=== PATIENT | female | born 1960 | race Caucasian/White ===

== ENCOUNTER → 2023-09-05 | Outpatient (CLI) | payer BC | END | disposition home or self-care (01) | LOC: LABPAT 10:05 | PROVIDERS: ATTEND Orthopaedic Surgery | DX: Z01.812 Encounter for preprocedural laboratory examination (principal); M17.12 Unilateral primary osteoarthritis, left knee; Z22.322 Carrier or suspected carrier of Methicillin resistant Staphylococcus aureus | CPT/HCPCS: 87070 ==

== ENCOUNTER 2023-10-09 12:00 | Observation (INO) | payer BC ==
--- NOTE | 2023-10-08 12:25 | HP ---
HISTORY AND PHYSICAL DATE OF SURGERY: 10/09/2023 HISTORY OF PRESENT ILLNESS: Brandee Jackson is a 63-year-old patient seen with symptomatic left knee osteoarthritis. We discussed options regarding treatment. She elected to proceed with left total knee arthroplasty. Consent was obtained. Medical clearance was provided by Dr. Marilee Otoole. PAST MEDICAL HISTORY: Nch-[id number] diabetes. PAST SURGICAL HISTORY: Noncontributory. DAILY MEDICATIONS: Unknown. SOCIAL HISTORY: She denies tobacco use. PHYSICAL EVALUATION OF THE RIGHT KNEE: Range of motion is -2 to 110 degrees. Mild effusion. Lateral joint line tenderness. Lateral patellofemoral crepitus with range of motion. Pain with patellofemoral compression. Ligaments stable. There is a valgus deformity. Hip rotation without pain. Distal neurovascular exam is intact. IMAGING STUDIES: Radiographs of the left knee revealed severe lateral compartment osteoarthritis with diffuse osteophytes. IMPRESSION: 1. Left knee osteoarthritis. 2. Mxh-sgwremx-ukbupcyns diabetes. PLAN: Left total knee arthroplasty. MMODL / IJN: [id number] /
[~2023-10-09 12:00] MED LIST: TRANEXAMIC 1,000 MG/100ML-NACL 1,000 MG in SALINE 1 100ML.BAG IVPB PRN
[2023-10-09] MEDS: LACTATED RINGERS 1,000 ML IV SCH ×2 (12:46→21:46)
[2023-10-09 12:58] LABS: Glucose,Whole Blood 94 mg/dL (70-110)
[2023-10-09] MEDS: ACETAMINOPHEN TAB 500 MG TAB PO PRN (13:01)
[2023-10-09] MEDS: DEXAMETHASONE SOD PHOSPHATE 4 MG/ML 1 ML VIAL IV ONE (13:02)
[2023-10-09] MEDS: ONDANSETRON 4 MG/2 ML VIAL IVP ONE (13:02)
[2023-10-09] MEDS: MELOXICAM 7.5 MG TAB PO PRN (13:02)
[2023-10-09] MEDS: MIDAZOLAM 2 MG/2 ML VIAL IVP ONE (13:18)
[2023-10-09] MEDS ORDERED: MIDAZOLAM 2 MG/2 ML VIAL ONE (15:03)
[2023-10-09] MEDS ORDERED: TRANEXAMIC 1,000 MG/100ML-NACL PREMIX BAG ONE (15:03)
[2023-10-09] MEDS ORDERED: DEXAMETHASONE SOD PHOSPHATE 4 MG/ML 1 ML VIAL ONE (15:03)
[2023-10-09] MEDS ORDERED: PROPOFOL 10 MG/ML 20 ML VIAL IV ONE (15:03)
[2023-10-09] MEDS ORDERED: fentaNYL (PF) 50 MCG/ML 2 ML AMP ONE (15:03)
[2023-10-09] MEDS ORDERED: ROPIVACAINE 5 MG/ML 30 ML VIAL ONE (15:03)
[2023-10-09] MEDS: ceFAZolin 1,000 MG in SODIUM CHLORIDE 0.9% 1,000 ML IRRIGATION ONE (15:25)
[2023-10-09] MEDS ORDERED: NALOXONE 0.4 MG/ML 1 ML VIAL IV PRN (16:43)
[2023-10-09] MEDS ORDERED: HYDROmorphone 0.5 MG/0.5 ML SYRINGE IVP PRN (16:43)
[2023-10-09] MEDS ORDERED: HYDROcodone/APAP 5-325MG 1 EACH TAB PO PRN (16:43)
--- NOTE | 2023-10-09 16:43 | P.OP ---
Date of Procedure: 10/09/23 Preoperative Diagnosis: Left knee osteoarthritis Postoperative Diagnosis: Left knee osteoarthritis Procedure(s) Performed: Left total knee arthroplasty Implants: 1. DePuy attune size 4 left cruciate retaining cemented femur 2. DePuy attune size 4 fixed-bearing cemented tibial baseplate 3. DePuy attune size 4 fixed-bearing cruciate retaining 6 mm polyethylene tibial insert 4. DePuy attune 35 mm all polyethylene cemented patella Anesthesia: regional (Adductor canal catheter, iPAQ block), spinal Surgeon: Leno Jacques Lipcoat Sprayer #1: Barrington Adkins Estimated Blood Loss (ml): 45 Pathology: none sent Condition: stable Disposition: PACU Indications for Procedure: 63-year-old patient who was seen with symptomatic left knee osteoarthritis. After treatment options were discussed, she elected to proceed with total knee arthroplasty. Operative Findings: See description of procedure Description of Procedure: Patient was taken to the operative suite after having an adductor canal catheter placed by the department of anesthesia. Patient underwent a spinal anesthetic by the department of anesthesia. Patient was given preoperative IV intake antibiotics and TXA. A well-padded tourniquet was placed about the left lower extremity. The lower extremity was then prepped and draped in the normal sterile orthopedic fashion. The extremity was elevated, a tourniquet was i nsufflated to 300. A standard anterior incision was made sharply through skin. Dissection was taken down through the subcutaneous soft tissues down to the extensor mechanism. A medial arthrotomy was performed, patella was everted and knee was flexed. There was advanced osteoarthritis noted. I introduced my distal intramedullary femoral drill. I then introduced the distal femoral cutting jig. Barrington FUENTES secured the cutting jig with 2 pins. I held retractors in position while Barrington FUENTES performed the distal femoral resection through the guide area we now removed her distal femoral cutting guide. We now placed our 4-in-1 femoral cutting block and positioned and it was secured with 2 pins by Barrington FUENTES while I held the block in position. The distal femoral finishing was now completed. A proximal tibial cutting guide was positioned. I held the guide in the appropriate position with both hands while Barrington FUENTES inserted stabilizing pins into the guide. Proximal tibial cut was made. We now placed a trial femoral component into position, along with an appropriate size tibial tray and insert. We now took the knee through range of motion and had full extension good flexion and good overall soft tissue balance noted. The patella was everted and stabilized with 2 towel clips held by Barrington FUENTES while I performed a flush with patellar quad tendon utilizing a fresh sawblade. We templated the patella, appropriate drill holes were made. An appropriate trial patella was positioned, knee was taken through full range of motion with the patella tracking very nicely. The trial patella was removed. Drill holes were made through the femoral component. All trial components were removed after marking off the appropriate rotation of the tibia. Retractors we re now positioned along the proximal tibia. An appropriate keel punch was made with the appropriate size tibial guide by myself on Barrington FUENTES assisted by holding retractors. At this point appropriate size implants were chosen and opened. The joint was irrigated copiously with pulse lavage mechanical irrigation. The wound was irrigated with pulse lavage mechanical irrigation. We mixed antibiotic methylmethacrylate. We placed the knee into flexion. We placed multiple retractors assisted by Barrington FUENTES to expose the proximal tibia. Once the methyl methacrylate was ready, the tibial component was cemented into place removing any excess methylmethacrylate form by both myself and Barrington FUENTES. The femoral component was cemented into place removing the removing any excess methylmethacrylate performed by both myself and Barrington FUENTES. We then inserted the appropriate size polyethylene tibial insert. We made sure that it was locked into position. We took the knee into full extension, and then back in a flexion making sure we had removed any excess methylmethacrylate. The patellar component was then cemented down and secured with clamp. Excess methylmethacrylate removed. We kept the knee in full extension, patellar clamp in position until methylmethacrylate had hardened. Once it had hardened the patellar clamp was removed. The knee was taken through full range of motion. The patella tracked nicely. There was good soft tissue balancing. The tourniquet was now released. Additional hemostasis was achieved via electrocautery. A second gram of TXA was given. The wound again was irrigated with pulse lavage mechanical irrigation. The extensor mechanism was repaired with Ethibond suture. We checked the repair with range of motion and it was stable. The subcutaneous soft tissues were repaired with Vicryl in layers. The skin was approximated with pernio/Dermabond. Sterile dressings were applied followed by loose web roll and Coy bandage. The patient was transferred to a bed, and taken to recovery in stable and satisfactory condition. Barrington FUENTES assisted with this complex procedure.
[2023-10-09 17:17] LABS: Glucose,Whole Blood 119 mg/dL (70-110)
[2023-10-09] MEDS: fentaNYL (PF) 50 MCG/ML 2 ML AMP IV PRN (17:29)
--- NOTE | 2023-10-09 17:52 | XR ---
PROCEDURE: XR knee limited LT - 2V DATE AND TIME: 10/09/2023 5:44 PM CLINICAL INDICATION: PHH; Evaluation for Postop abnormality and alignment TECHNIQUE: Department protocol COMPARISON: None FINDINGS: Portable AP and crosstable lateral postoperative views were obtained. TKR appears in anatom ic positioning and alignment. No unexpected postoperative changes. IMPRESSION: Post TKR radiographic examination - left knee.
[2023-10-09] MEDS: IV FLUID CONTINUATION 1,000 ML IV ONE (18:00)
[2023-10-09] MEDS: HYDROmorphone 0.5 MG/0.5 ML SYRINGE IVP PRN (19:07)
[2023-10-09 21:55] LABS: Glucose,Whole Blood 134 mg/dL (70-110)
[2023-10-09] MEDS: SENNOSIDES-DOCUSATE SODIUM 1 EACH TAB PO SCH (21:57)
[2023-10-09] MEDS: HYDROcodone/APAP 5-325MG 1 EACH TAB PO PRN (21:58)
[2023-10-09] MEDS ORDERED: DEXTROSE 50% SYRINGE 50 ML IVP PRN ×2 (23:14)
[2023-10-09] MEDS: INSULIN ASPART (NovoLOG) 100 UNIT/ML VIAL SQ SCH (23:26)
[2023-10-09] MEDS: ATORVASTATIN 10 MG TAB PO SCH (23:52)
[2023-10-10] MEDS: HYDROmorphone 1 MG/ML 1 ML SYRINGE IVP PRN (03:09)
--- NOTE | 2023-10-10 05:13 | P.CONS ---
History of Present Illness - Reason for Consult Consult date: 10/09/23 Postoperative medical management - Chief Complaint Left knee osteoarthritis - History of Present Illness 63-year-old female with diabetes mellitus hypertension Patient coming in for left total knee arthroplasty secondary to severe advanced left knee osteoarthritis debilitating pain and limitations in activities of daily living patient tolerated procedure well no observed immediate postoperativ e complications denies any chest pain or trouble breathing denies any nausea vomiting or abdominal pain patient tolerated p.o. intake she ambulated with assistance she has passed urine Patient denies any tobacco smoking or heavy alcohol consumption review of systems Pertinent positives as noted in HPI. All other systems were reviewed and are negative on exam Constitutional: No acute distress, conversant, pleasant Eyes: Anicteric sclerae, moist conjunctiva, Pupils equal round reactive to light ENMT: NC/AT Oropharynx clear, no erythema, or exudates Neck: Supple, no masses, or JVD No carotid bruits No thyromegaly Lungs: Clear to auscultation Clear to percussion Normal respiratory effort, no accessory muscle use Cardiovascular: Heart regular in rate and rhythm, No murmurs, gallops, or rubs No peripheral edema Abdominal: Soft Nontender, no guarding, rebound or rigidity Abdomen moving with respiration Normoactive bowel sounds No hepatomegaly, No splenomegaly Extremities: No digital cyanosis No clubbing Pedal pulses intact and symmetrical Radial pulses intact and symmetrical No calf tenderness Psychiatric: Alert and oriented to person, place and time Appropriate affect fair judgement Neuro Muscles Strength 5/5 in all 4 extremities with some Tatian left lower extremity due to postop Sensation to light touch grossly present throughout Cranial nerves II-XII grossly intact Past Medical History Past Medical History: Diabetes Mellitus, Hyperlipidemia, Hypertension, Osteoarthritis (OA) Additional Past Medical History / Comment(s): hx. diverticulitis History of Any Multi-Drug Resistant Organisms: None Reported Past Surgical History: Bowel Resection, Breast Surgery, Cholecystectomy, Hernia Repair Additional Past Surgical History / Comment(s): benign breast bx. Past Anesthesia/Blood Transfusion Reactions: No Reported Reaction Past Psychological History: No Psychological Hx Reported Smoking Status: Former smoker Past Alcohol Use History: Occasional Additional Past Alcohol Use History / Comment(s): quit smoking 1990, started @age of 11, 1-2ppd Past Drug Use History: None Reported - Past Family History Mother Family Medical History: No Reported History Medications and Allergies Home Medications Medication Instructions Recorded Confirmed Type Ascorbic Acid [Vitamin C] 500 mg PO DAILY 10/04/23 10/04/23 History Aspirin 81 mg PO DAILY 10/04/23 10/04/23 History Atorvastatin [Lipitor] 10 mg PO HS 10/04/23 10/04/23 History Cholecalciferol [Vitamin D3 (25 25 mcg PO DAILY 10/04/23 10/04/23 History Mcg = 1000 Iu)] Garlic 100 mg PO DAILY 10/04/23 10/04/23 History Magnesium 200 mg PO DAILY 10/04/23 10/04/23 History [place]-3/Dha/Epa/Fish Oil [Fish Oil 1 each PO DAILY 10/04/23 10/04/23 History 1,000 mg Softgel] Pioglitazone [Actos] 30 mg PO DAILY 10/04/23 10/04/23 History Semaglutide [Ozempic] 1 mg SQ VAN 10/04/23 10/04/23 History lisinopriL [Zestril] 5 mg PO DAILY 10/04/23 10/04/23 History Allergies Allergy/AdvReac Type Severity Reaction Status Date / Time morphine Allergy Hallucinati Verified 10/04/23 10:18 ons metformin AdvReac Diarrhea Verified 10/04/23 10:17 Physical Exam Vitals: Vital Signs Temp Pulse Pulse Resp BP Pulse Ox 10/10/23 02:00 97.5 F L 62 103/56 99 10/09/23 19:30 60 18 141/63 98 10/09/23 19:00 67 16 130/64 100 10/09/23 18:30 58 L 18 124/66 97 10/09/23 18:00 63 17 118/53 99 10/09/23 17:45 66 18 102/45 99 10/09/23 17:30 63 16 111/54 97 10/09/23 17:15 73 17 107/49 95 10/09/23 17:10 97.2 F L 70 18 102/46 93 L 10/09/23 13:40 65 18 124/61 100 10/09/23 12:37 97.9 F 63 18 140/64 99 Intake and Output 10/09/23 10/09/23 10/10/23 14:59 22:59 06:59 Intake Total 200 1051 Output Total 45 Balance 200 1006 Intake: IV 200 1051 Output: Estimated Blood Loss 45 Other: Voiding Method Bedside Commode Weight 93.9 kg 93.9 kg Results Labs: Abnormal Lab Results - Last 24 Hours (Table) 10/09/23 10/09/23 Range/Units 17:15 21:54 POC Glucose (mg/dL) 119 H 134 H (70-110) mg/dL Assessment and Plan Assessment: Hypertension controlled resume lisinopril Diabetes mellitus Hold oral hypoglycemic agents Initiate patient on insulin sliding scale Left total knee arthroplasty postoperative day 0 Pain control DVT prophylaxis per primary orthopedic team Stable from medical standpoint Check CBC BMP in the morning Thank you for this consultation
[2023-10-10 05:31] LABS: Glucose,Whole Blood 150 mg/dL (70-110)
--- NOTE | 2023-10-10 08:52 | P.PN ---
Progress Note - Text Progress Note Date: 10/10/23 Postoperative day # 1 status post total knee arthroplasty, and adductor canal catheter placed for postoperative analgesia, currently at ropivacaine 0.2% 8 mL per hour and continuous infusion, visual analogue scale is 4/10, patient using oral pain medication for breakthrough pain. Assessment and plan= Acute postoperative pain, adductor canal catheter for pain control, pain is well controlled we'll continue the same management.
[2023-10-10] MEDS: MELOXICAM 7.5 MG TAB PO SCH (09:31)
[2023-10-10] MEDS: lisinopriL 5 MG TAB PO SCH (09:31)
[2023-10-10] MEDS: ENOXAPARIN 30 MG/0.3 ML SYRINGE SQ SCH (09:33)
[2023-10-10 10:02] LABS: African American GFR (CKD) >90 (>60 ml/min/1.73 sqM); Anion Gap 8 mmol/L; Blood Urea Nitrogen 15 mg/dL (7-17); Calcium 9.4 mg/dL (8.4-10.2); Carbon Dioxide 26 mmol/L (22-30); Chloride 102 mmol/L (98-107); Glucose 133 mg/dL (74-99); Non-African American GFR(CKD) >90 (>60 ml/min/1.73 sqM); Potassium 4.6 mmol/L (3.5-5.1); Sodium 136 mmol/L (137-145)
[2023-10-10 11:16] LABS: Glucose,Whole Blood 135 mg/dL (70-110)
--- NOTE | 2023-10-10 12:31 | P.PN ---
Subjective Progress Note Date: 10/10/23 Subjective: Patient seen and examined at bedside. No acute events overnight. Pertinent positives and negatives as discussed above, a complete review of systems was performed and all other systems are negative. Vitals Signs Reviewed. General: Nontoxic, no distress, appears at stated age Derm: Warm, dry, dressing clean, dry, intact Head: Atraumatic, normocephalic, symmetric Eyes: EOMI, no lid lag, anicteric sclera Mouth: No lip lesion, mucus membranes moist Cardiovascular: S1S2 reg, no murmur Lungs: CTA bilateral, no rhonchi, no rales, no accessory muscle use Abdominal: Soft, nontender to palpation, no guarding, no appreciable organomegaly Ext: No gross muscle atrophy, no edema, no contractures Neuro: CN II-XI grossly intact, no focal neuro deficits Psych: Alert, oriented, appropriate affect Data Reviewed Today: Pertinent Labs: Sodium 136, creatinine 0.53, blood sugars range between 1 33-1 50, CBC pending, will be reviewed when available Imaging: No new imaging Assessment and Plan: Status post left total knee arthroplasty Pain control with oral Dilliner as needed, IV Dilaudid as needed, meloxicam 7.5 daily Bowel regimen per orthopedic surgery Lovenox 30 subcu every 12 hours for DVT prophylaxis Dyslipidemiaatorvastatin 10 mg nightly Hypertensionlisinopril 5 mg daily Type 2 diabeteshold home medications, on sliding scale insulin, monitor for hypoglycemia Patient is medically optimized for discharge Thank you for allowing us to participate in the care of this pleasant patient. Do not hesitate to contact us with questions. Someone can be reached from the [facility] hospitalist group all hours of the day at [phone] or via perfect serve. Objective - Vital Signs Vital signs: Vital Signs Temp 98.0 F 10/10/23 07:32 Pulse 75 10/10/23 07:32 Resp 19 10/10/23 07:32 BP 108/69 10/10/23 07:32 Pulse Ox 100 10/10/23 07:32 FiO2 Intake & Output 10/09/23 10/10/23 10/10/23 18:59 06:59 18:59 Intake Total 1251 Output Total 45 125 Balance 1206 -125 Weight 93.9 kg 93.9 kg Intake: IV 1251 Output: Urine 125 Estimated Blood Loss 45 Other: Voiding Method Bedside Commode # Voids 1 - Labs CBC & Chem 7: 10/10/23 07:35 Labs: Abnormal Lab Results - Last 24 Hours (Table) 10/09/23 10/09/23 10/10/23 Range/Units 17:15 21:54 05:29 Sodium (137-145) mmol/L Glucose (74-99) mg/dL POC Glucose (mg/dL) 119 H 134 H 150 H (70-110) mg/dL 10/10/23 10/10/23 Range/Units 07:35 11:15 Sodium 136 L (137-145) mmol/L Glucose 133 H (74-99) mg/dL POC Glucose (mg/dL) 135 H (70-110) mg/dL
[2023-10-10] MEDS: MULTIVITAMINS, THERA 1 EACH TAB PO SCH (12:32)
[2023-10-10] MEDS: ONDANSETRON 4 MG/2 ML VIAL IVP PRN (12:34)
[2023-10-10 12:49] LABS: Basophils # (A) 0.04 X 10*3/uL (0.00-0.10); Basophils % (A) 0.2 %; Eosinophils # (A) 0 X 10*3/uL (0.04-0.35); Eosinophils % (A) 0 %; HCT 40.5 % (37.2-46.3); HGB 13.1 g/dL (12.0-15.0); Lymphocytes # (A) 1.24 X 10*3/uL (0.90-5.00); Lymphocytes % (A) 7.6 %; MCH 33.8 pg (27.0-32.0); MCHC 32.3 g/dL (32.0-37.0); MCV 104.4 FL (80.0-97.0); Mean Platelet Volume 11.1 FL (9.5-12.2); Monocytes # (A) 1.03 X 10*3/uL (0.20-1.00); Monocytes % (A) 6.3 %; NRBC Per 100 WBC 0 X 10*3/uL (0.00-0.01); Neutrophils # (A) 13.92 X 10*3/uL (1.80-7.70); Neutrophils % (A) 85.3 %; Platelet Count 259 X 10*3/uL (140-440); RBC 3.88 X 10*6/uL (4.10-5.20); RDW 13.1 % (11.5-14.5); WBC 16.33 X 10*3/uL (4.50-10.00)
--- NOTE | 2023-10-10 13:20 | P.PN ---
Subjective Progress Note Date: 10/10/23 Principal diagnosis: Left knee osteoarthritis Patient was seen at bedside this morning sitting up in chair. Patient says she just finished working with therapy and did do a little bit nauseous when she got up with therapy. Patient says she is hoping to go home upon discharge. Patient says her does live with her at home and will be available help her once home. Patient also mentions that one of her children will help her for the first few days. Patient says she has urinated several times since surgery yesterday. Patient says she has not had bowel iliac, however, patient says she has been passing gas. Patient denies chest pain, fever, shortness breath, change in vision, loss of bowel/bladder control. Objective - Vital Signs Vital signs: Vital Signs Temp 98.0 F 10/10/23 07:32 Pulse 75 10/10/23 07:32 Resp 19 10/10/23 07:32 BP 108/69 10/10/23 07:32 Pulse Ox 100 10/10/23 07:32 FiO2 Intake & Output 10/09/23 10/10/23 10/10/23 18:59 06:59 18:59 Intake Total 1251 Output Total 45 125 Balance 1206 -125 Weight 93.9 kg 93.9 kg Intake: IV 1251 Output: Urine 125 Estimated Blood Loss 45 Other: Voiding Method Bedside Commode # Voids 1 - Exam Left knee: Incision is clean, dry, and intact. The silver foam dressing is in good condition. There is minimal soft tissue swelling and ecchymosis surrounding the medial and lateral aspects of the incision. Calf is soft, no tenderness with palpation. Plantar flexion, dorsiflexion, EHL, FHL are intact. Sensory exam to light touch throughout the extremity is intact, dorsal pedis pulses 2+. - Labs CBC & Chem 7: 10/10/23 07:35 10/10/23 07:35 Labs: Abnormal Lab Results - Last 24 Hours (Table) 10/09/23 10/09/23 10/10/23 Range/Units 17:15 21:54 05:29 Sodium (137-145) mmol/L Glucose (74-99) mg/dL POC Glucose (mg/dL) 119 H 134 H 150 H (70-110) mg/dL 10/10/23 Range/Units 07:35 Sodium 136 L (137-145) mmol/L Glucose 133 H (74-99) mg/dL POC Glucose (mg/dL) (70-110) mg/dL Assessment and Plan Assessment: 1. Left knee osteoarthritis - Postop day #1 status post left total knee arthroplasty Plan: 1. Left knee osteoarthritis - left total knee platform yesterday, 10/09/2023. Patient stable bedside this morning. We will plan to keep patient for 1 more night for additional pain control and therapy. Plan for discharge home tomorrow with health services. Patient does have a walker at home. 2. Appreciate medical management 3. Pain management - [place] 4. DVT prophylaxis - Lovenox 5. GI prophylaxis - senna 6. PT/OT - weightbearing as tolerated with walker 7. Encourage incentive spirometer use 8. Discharge planning - plan for home tomorrow with health services Time with Patient: Less than 30
[2023-10-10 16:32] LABS: Glucose,Whole Blood 189 mg/dL (70-110)
[2023-10-10 20:10] LABS: Glucose,Whole Blood 162 mg/dL (70-110)
[2023-10-11 06:13] LABS: Glucose,Whole Blood 138 mg/dL (70-110)
--- NOTE | 2023-10-11 08:01 | P.ANPRN ---
Procedure Note - Anesthesia - Nerve Block Performed Left Adductor Canal Infusion Time Out Performed: Yes Date of Procedure: 10/09/23 Procedure Start Time: 13:18 Procedure Stop Time: 13:30 Location of Patient: PreOp Indication: Acute Post-Operative Pain, Requested by Surgeon Sedation Type: Sedate with meaningful contact maintained Preparation: Sterile Prep, Sterile Dressing Position: Supine Catheter: Indwelling Needle Types: Pajunk Needle Gauge: 21 Ultrasound used to visualize needle placement: Yes Ultrasound used to observe medication spread: Yes Blood Aspirated: No Pain Paresthesia on Injection Noted: No Resistance on Injection: Normal Image Stored and Saved: Yes Events: Uneventful and Well Tolerated (Ropivacaine 0.5% 20 cc plus dexamethasone 4 mg)
--- NOTE | 2023-10-11 08:02 | P.ANPRN ---
Procedure Note - Anesthesia - Nerve Block Performed Left iPack Single Time Out Performed: Yes Date of Procedure: 10/09/23 Procedure Start Time: 13:31 Procedure Stop Time: 13:34 Location of Patient: PreOp Indication: Acute Post-Operative Pain, Requested by Surgeon Sedation Type: Sedate with meaningful contact maintained Preparation: Sterile Prep Position: Supine Needle Types: Pajunk Needle Gauge: 21 Ultrasound used to visualize needle placement: Yes Ultrasound used to observe medication spread: Yes Blood Aspirated: No Pain Paresthesia on Injection Noted: No Resistance on Injection: Normal Image Stored and Saved: Yes Events: Uneventful and Well Tolerated (Ropivacaine 0.5% 20 cc plus dexamethasone 4 mg)
[2023-10-11 08:46] LABS: Basophils # (A) 0.04 X 10*3/uL (0.00-0.10); Basophils % (A) 0.4 %; HCT 34.5 % (37.2-46.3); HGB 11.4 g/dL (12.0-15.0); Lymphocytes # (A) 2.89 X 10*3/uL (0.90-5.00); Lymphocytes % (A) 27.5 %; MCH 33.3 pg (27.0-32.0); MCV 100.9 FL (80.0-97.0); Mean Platelet Volume 10.7 FL (9.5-12.2); Monocytes % (A) 10.5 %; NRBC Per 100 WBC 0 X 10*3/uL (0.00-0.01); Neutrophils # (A) 6.33 X 10*3/uL (1.80-7.70); Neutrophils % (A) 60.1 %; Platelet Count 191 X 10*3/uL (140-440); RBC 3.42 X 10*6/uL (4.10-5.20); RDW 13.2 % (11.5-14.5); WBC 10.51 X 10*3/uL (4.50-10.00)
[2023-10-11 08:54] LABS: BUN/Creat Ratio 21.57 Ratio (12.00-20.00); Blood Urea Nitrogen 15.1 mg/dL (9.0-27.0); Calcium 9.1 mg/dL (8.7-10.3); Carbon Dioxide 25.9 mmol/L (21.6-31.8); Chloride 100 mmol/L (96-109); Glucose 155 mg/dL (70-110); Potassium 4.6 mmol/L (3.5-5.5); Sodium 133 mmol/L (135-145)
[2023-10-11 08:55] VITALS: BP 124/73; PULSE 78; RESP 17; TEMP 98.1
--- NOTE | 2023-10-11 09:39 | P.PN ---
Subjective Progress Note Date: 10/11/23 Principal diagnosis: Status post left total knee arthroplasty Patient was evaluated at bedside today, she is resting in her hospital bed. She has been up multiple times ambulating with no assistance and using walker. She was unable to work with physical therapy yesterday, she was dealing with some nausea and vomiting. Patient is eager to be discharged home today with home [facility] care. She denies any headaches, lightheadedness, chest pain or shortness of breath Objective - Vital Signs Vital signs: Vital Signs Temp 98.1 F 10/11/23 07:39 Pulse 78 10/11/23 07:39 Resp 17 10/11/23 07:39 BP 124/73 10/11/23 07:39 Pulse Ox 96 10/11/23 07:39 FiO2 Intake & Output 10/10/23 10/11/23 10/11/23 18:59 06:59 18:59 Other: # Voids 4 2 1 - Exam Left lower extremity: Incision is clean, dry, and intact. The foam dressing is in good condition. There is minimal soft tissue swelling and ecchymosis surrounding the medial and lateral aspects of the incision. Calf is soft, no tenderness with palpation. Plantar flexion, dorsiflexion, EHL, FHL are intact. Sensory exam to light touch throughout the extremity is intact, dorsal pedis pulses 2+. - Labs CBC & Chem 7: 10/11/23 04:10 10/11/23 04:10 Labs: Abnormal Lab Results - Last 24 Hours (Table) 10/10/23 10/10/23 10/10/23 Range/Units 07:35 07:35 07:35 WBC 16.33 H (4.50-10.00) X 10*3/uL RBC 3.88 L (4.10-5.20) X 10*6/uL Hgb (12.0-15.0) g/dL Hct (37.2-46.3) % MCV 104.4 H (80.0-97.0) FL MCH 33.8 H (27.0-32.0) pg Immature Gran # 0.10 H (0.00-0.04) X 10*3/uL Neutrophils # 13.92 H (1.80-7.70) X 10*3/uL Monocytes # 1.03 H (0.20-1.00) X 10*3/uL Eosinophils # 0 L (0.04-0.35) X 10*3/uL Sodium 136 L (137-145) mmol/L BUN/Creatinine Ratio (12.00-20.00) Ratio Glucose 133 H (74-99) mg/dL POC Glucose (mg/dL) (70-110) mg/dL Hemoglobin A1c 6.2 H (<=6.0) % 10/10/23 10/10/23 10/10/23 Range/Units 11:15 16:31 20:08 WBC (4.50-10.00) X 10*3/uL RBC (4.10-5.20) X 10*6/uL Hgb (12.0-15.0) g/dL Hct (37.2-46.3) % MCV (80.0-97.0) FL MCH (27.0-32.0) pg Immature Gran # (0.00-0.04) X 10*3/uL Neutrophils # (1.80-7.70) X 10*3/uL Monocytes # (0.20-1.00) X 10*3/uL Eosinophils # (0.04-0.35) X 10*3/uL Sodium (137-145) mmol/L BUN/Creatinine Ratio (12.00-20.00) Ratio Glucose (74-99) mg/dL POC Glucose (mg/dL) 135 H 189 H 162 H (70-110) mg/dL Hemoglobin A1c (<=6.0) % 10/11/23 10/11/23 10/11/23 Range/Units 04:10 04:10 06:12 WBC 10.51 H (4.50-10.00) X 10*3/uL RBC 3.42 L (4.10-5.20) X 10*6/uL Hgb 11.4 L (12.0-15.0) g/dL Hct 34.5 L (37.2-46.3) % MCV 100.9 H (80.0-97.0) FL MCH 33.3 H (27.0-32.0) pg Immature Gran # 0.05 H (0.00-0.04) X 10*3/uL Neutrophils # (1.80-7.70) X 10*3/uL Monocytes # 1.10 H (0.20-1.00) X 10*3/uL Eosinophils # (0.04-0.35) X 10*3/uL Sodium 133 L (137-145) mmol/L BUN/Creatinine Ratio 21.57 H (12.00-20.00) Ratio Glucose 155 H (74-99) mg/dL POC Glucose (mg/dL) 138 H (70-110) mg/dL Hemoglobin A1c (<=6.0) % Assessment and Plan Assessment: Postoperative day #2 status post left total knee arthroplasty Plan: Pain control, plan for discharge home on [place] 7.5 mg / 325 mg DVT prophylaxis, she will increase her aspirin 81 mg to twice a day for 30 days then return to 1 daily Wound care instructions discussed, this to include bandage instructions, showering instructions and removal of On-Q pain catheter Use of CPM and icing and elevating were discussed Home PT/nursing after discharge Medical recommendations appreciated Discharge planning: Patient stable for discharge home today Time with Patient: Less than 30
--- NOTE | 2023-10-11 09:43 | P.DS ---
Providers Date of admission: 10/10/23 13:05 Expected date of discharge: 10/11/23 Attending physician: Leno Jacques Consults: 10/09/23 16:43 Consult Physician Routine Consulting Provider: Marilee Flores Consult Reason/Comments: Medical management Do you want consulting provider notified?: Yes 10/09/23 23:08 Consult Physician Routine Consulting Provider: Nida Pham Consult Reason/Comments: medical management Do you want consulting provider notified?: Already Contacted Primary care physician: Marilee Flores Hospital Course: Date of admission: 10/09/2023 Date of discharge: 10/11/2023 Admission diagnosis: Status post left total knee arthroplasty Discharge diagnosis: Same Attending physician: Dr. Jacques Surgical procedures: Left total knee arthroplasty Brief history: Patient is a 63-year-old female with a history of progressive primary left knee osteoarthritis. At this point patient has failed conservative treatment measures and has opted to proceed with a elective left total knee arthroplasty. Hospital course: Details of patient's surgery can be found in operative report. Patient tolerated the procedure well and was subsequently transported to orthopedic floor. Patient's orthopeidc and medical care was provided daily. Patient had daily laboratory tests performed for evaluation of overall blood counts. Patient had daily physical therapy to include strengthening range of motion as well as education with walker ambulation. Patient was treated with Lovenox for their postoperative DVT prophylaxis during their inpatient stay. Patient was noted to have a relatively uneventful postoperative course. Patient reported satisfactory pain control with oral pain medications by postoperative day 1. Patient showed satisfactory progress with physical therapy. Patient moved steadily through the program and had no difficulty meeting the goals by postoperative day 2. Given patient's otherwise satisfactory course and having met physical therapy goals, plan is to discharge patient home on postoperative day 2. Discharge condition/disposition: Patient will be discharged home in stable condition. Discharge medications: Instructions are given on resumption of patient's normal daily medications per primary care recommendation, in addition patient will be prescribed [place] 7.5 mg / 325 mg, senna S. Discharge instructions: 1. Wound care and infection precautions, keep incision dry and covered while showering, no lotions, creams, moisturizers. No soaking, tubs, pools, hottubs. Do not scrub over the incision. 2. Weight-bear as tolerated with walker / cane until follow-up. 3. Ice and elevate when necessary. Do not exceed 20 minutes per hour with ice pack. 4. Utilize compression sleeve until seen at first follow up appointment. 5. Visiting nursing care. 6. Home physical therapy. 7. Pain meds and anticoagulants per prescription. 8. Pain medication has potential to cause constipation. Increase oral fluid and fiber intake. Contact primary care provider if you have not had a bowel movement within 48 hours after discharge 9. No anti-inflammatory medication until discussed at first post operative visit, this including Motrin, Aleve, Mobic, Diclofenac. 10. Follow up in office at 2 weeks postop with Wicho Farr PA-C/Barrington Lozano 11. Follow up with your primary care doctor 7-10 days after discharge. 12. Contact [facility] with any questions, . Procedures: Left total knee arthroplasty Patient Condition at Discharge: Good Plan - Discharge Summary Discharge Rx Participant: Yes New Discharge Prescriptions: New Aspirin [Adult Low Dose Aspirin EC] 81 mg PO BID #60 tab HYDROcodone/APAP 7.5-325MG [[place] 7.5] 1 each PO Q6HR PRN #28 tab PRN Reason: Pain Sennosides/Docusate Sodium [Senna-S 8.6-50 mg Tablet] 2 each PO DAILY PRN #30 tablet PRN Reason: Constipation No Action Ascorbic Acid [Vitamin C] 500 mg PO DAILY Cholecalciferol [Vitamin D3 (25 Mcg = 1000 Iu)] 25 mcg PO DAILY Atorvastatin [Lipitor] 10 mg PO HS Aspirin 81 mg PO DAILY [place]-3/Dha/Epa/Fish Oil [Fish Oil 1,000 mg Softgel] 1 each PO DAILY Garlic 100 mg PO DAILY Semaglutide [Ozempic] 1 mg SQ VAN Pioglitazone [Actos] 30 mg PO DAILY lisinopriL [Zestril] 5 mg PO DAILY Magnesium 200 mg PO DAILY Discharge Medication List Ascorbic Acid [Vitamin C] 500 mg PO DAILY 10/04/23 [History] Aspirin 81 mg PO DAILY 10/04/23 [History] Atorvastatin [Lipitor] 10 mg PO HS 10/04/23 [History] Cholecalciferol [Vitamin D3 (25 Mcg = 1000 Iu)] 25 mcg PO DAILY 10/04/23 [History] Garlic 100 mg PO DAILY 10/04/23 [History] Magnesium 200 mg PO DAILY 10/04/23 [History] [place]-3/Dha/Epa/Fish Oil [Fish Oil 1,000 mg Softgel] 1 each PO DAILY 10/04/23 [History] Pioglitazone [Actos] 30 mg PO DAILY 10/04/23 [History] Semaglutide [Ozempic] 1 mg SQ VAN 10/04/23 [History] lisinopriL [Zestril] 5 mg PO DAILY 10/04/23 [History] Aspirin [Adult Low Dose Aspirin EC] 81 mg PO BID #60 tab 10/11/23 [Rx] HYDROcodone/APAP 7.5-325MG [[place] 7.5] 1 each PO Q6HR PRN #28 tab 10/11/23 [Rx] Sennosides/Docusate Sodium [Senna-S 8.6-50 mg Tablet] 2 each PO DAILY PRN #30 tablet 10/11/23 [Rx] Follow up [facility]ment[facility] - As Needed Marilee Flores DO [Primary Care Provider] - 1 Week Norman Farr PAC [PHYSICIAN ORACLE APPLICATION ARCHITECT] - 10/25/23 3:50 pm Activity/Diet/Wound Care/Special Instructions: Orthopedic Discharge Instructions: 1. Wound care and infection precautions, keep incision dry and covered while showering, no lotions, creams, moisturizers. No soaking, pools, hot tubs. Do not scrub over incision. 2. Weight-bear as tolerated with walker / cane until follow-up. 3. Ice and elevate when necessary. Do not exceed 20 minutes per hour with ice pack. 4. Utilize compression sleeve until seen at first follow up appointment. 5. Pain meds and anticoagulants per prescription. 6. Pain medication has potential to cause constipation. Increase oral fluid and fiber intake. Contact primary care provider if you have not had a bowel movement within 48 hours after discharge. 7. No anti-inflammatory medication until discussed at first post operative visit, this including Motrin, Aleve, Mobic, Diclofenac. 8. Follow up in office at 2 weeks postop with Wicho Farr PA-C/Barrington Adkins PA-C 9. Follow up with your primary care doctor 7-10 days after discharge. 10. Contact [facility] with any questions, . Wound care instructions: 1. Okay to remove surgical dressing as of 10/16/2023 2. Okay to shower directly over the incision after removal of dressing Discharge Disposition: HOME WITH HOME HEALTH SERVICES
--- NOTE | 2023-10-11 10:55 | P.PN ---
Subjective Progress Note Date: 10/11/23 Subjective: Patient seen and examined at bedside. No acute events overnight. Pertinent positives and negatives as discussed above, a complete review of systems was performed and all other systems are negative. Vitals Signs Reviewed. General: Nontoxic, no distress, appears at stated age Derm: Warm, dry, dressing clean, dry, intact Head: Atraumatic, normocephalic, symmetric Eyes: EOMI, no lid lag, anicteric sclera Mouth: No lip lesion, mucus membranes moist Cardiovascular: S1S2 reg, no murmur Lungs: CTA bilateral, no rhonchi, no rales, no accessory muscle use Abdominal: Soft, nontender to palpation, no guarding, no appreciable organomegaly Ext: No gross muscle atrophy, no edema, no contractures Neuro: CN II-XI grossly intact, no focal neuro deficits Psych: Alert, oriented, appropriate affect Data Reviewed Today: Pertinent Labs: WBC 10.51, hemoglobin 11.4, sodium 133, creatinine 0.7, blood sugars range between 1 38-1 89 Imaging: No new imaging Assessment and Plan: Status post left total knee arthroplasty Leukocytosis, anticipated outcome of surgery Acute blood loss anemia, anticipated outcome of surgery Pain control with oral [place] as needed, IV Dilaudid as needed, meloxicam 7.5 daily Bowel regimen per orthopedic surgery Lovenox 30 subcu every 12 hours for DVT prophylaxis Dyslipidemiaatorvastatin 10 mg nightly Hypertensionlisinopril 5 mg daily Type 2 diabeteshold home medications, on sliding scale insulin, monitor for hypoglycemia Patient is medically optimized for discharge Thank you for allowing us to participate in the care of this pleasant patient. Do not hesitate to contact us with questions. Someone can be reached from the [facility] hospitalist group all hours of the day at [phone] or via [email or web address]. Objective - Vital Signs Vital signs: Vital Signs Temp 98.1 F 10/11/23 07:39 Pulse 78 10/11/23 07:39 Resp 17 10/11/23 07:39 BP 124/73 10/11/23 07:39 Pulse Ox 96 10/11/23 09:50 FiO2 Intake & Output 10/10/23 10/11/23 10/11/23 18:59 06:59 18:59 Other: # Voids 4 2 1 - Labs CBC & Chem 7: 10/11/23 04:10 10/11/23 04:10 Labs: Abnormal Lab Results - Last 24 Hours (Table) 10/10/23 10/10/23 10/10/23 Range/Units 07:35 07:35 11:15 WBC 16.33 H (4.50-10.00) X 10*3/uL RBC 3.88 L (4.10-5.20) X 10*6/uL Hgb (12.0-15.0) g/dL Hct (37.2-46.3) % MCV 104.4 H (80.0-97.0) FL MCH 33.8 H (27.0-32.0) pg Immature Gran # 0.10 H (0.00-0.04) X 10*3/uL Neutrophils # 13.92 H (1.80-7.70) X 10*3/uL Monocytes # 1.03 H (0.20-1.00) X 10*3/uL Eosinophils # 0 L (0.04-0.35) X 10*3/uL Sodium (135-145) mmol/L BUN/Creatinine Ratio (12.00-20.00) Ratio Glucose (70-110) mg/dL POC Glucose (mg/dL) 135 H (70-110) mg/dL Hemoglobin A1c 6.2 H (<=6.0) % 10/10/23 10/10/23 10/11/23 Range/Units 16:31 20:08 04:10 WBC 10.51 H (4.50-10.00) X 10*3/uL RBC 3.42 L (4.10-5.20) X 10*6/uL Hgb 11.4 L (12.0-15.0) g/dL Hct 34.5 L (37.2-46.3) % MCV 100.9 H (80.0-97.0) FL MCH 33.3 H (27.0-32.0) pg Immature Gran # 0.05 H (0.00-0.04) X 10*3/uL Neutrophils # (1.80-7.70) X 10*3/uL Monocytes # 1.10 H (0.20-1.00) X 10*3/uL Eosinophils # (0.04-0.35) X 10*3/uL Sodium (135-145) mmol/L BUN/Creatinine Ratio (12.00-20.00) Ratio Glucose (70-110) mg/dL POC Glucose (mg/dL) 189 H 162 H (70-110) mg/dL Hemoglobin A1c (<=6.0) % 10/11/23 10/11/23 Range/Units 04:10 06:12 WBC (4.50-10.00) X 10*3/uL RBC (4.10-5.20) X 10*6/uL Hgb (12.0-15.0) g/dL Hct (37.2-46.3) % MCV (80.0-97.0) FL MCH (27.0-32.0) pg Immature Gran # (0.00-0.04) X 10*3/uL Neutrophils # (1.80-7.70) X 10*3/uL Monocytes # (0.20-1.00) X 10*3/uL Eosinophils # (0.04-0.35) X 10*3/uL Sodium 133 L (135-145) mmol/L BUN/Creatinine Ratio 21.57 H (12.00-20.00) Ratio Glucose 155 H (70-110) mg/dL POC Glucose (mg/dL) 138 H (70-110) mg/dL Hemoglobin A1c (<=6.0) %
[2023-10-11 11:51] LABS: Glucose,Whole Blood 136 mg/dL (70-110)
== END 2023-10-11 13:12 | disposition home health service (06) ==
LOC: OR 12:00 → 4SSUR 17:15 → OR 10-10 13:05
PROVIDERS: ADMIT Orthopaedic Surgery; ATTEND Orthopaedic Surgery
DX: M17.12 Unilateral primary osteoarthritis, left knee (principal); E11.9 Type 2 diabetes mellitus without complications; R11.0 Nausea; I10 Essential (primary) hypertension; E78.5 Hyperlipidemia, unspecified; K57.92 Diverticulitis of intestine, part unspecified, without perforation or abscess without bleeding; Z87.891 Personal history of nicotine dependence; Z79.82 Long term (current) use of aspirin; Z79.899 Other long term (current) drug therapy; Z79.84 Long term (current) use of oral hypoglycemic drugs; Z88.5 Allergy status to narcotic agent; Z88.8 Allergy status to other drugs, medicaments and biological substances
CPT/HCPCS: 27447; 96372 ×2; 94760; 97116; 97161; 64999; 64448; 80048 ×2; 85025 ×2; 83036; 73560; G0378 ×2; C1776; C1713 ×2; C1751; J2250; J1100; J0690 ×3; J2405 ×2; J3010; J1650 ×2; J1170 ×2; J2795; J2704